=== PATIENT | male | born 1955 | race African-American/Black ===

== ENCOUNTER → 2017-09-05 15:02 | Outpatient (CLI) | payer OTHER, SELFPAY ==
--- NOTE | 2017-09-12 17:04 | PM.PFT.1 ---
Pulmonary Function Test Referral & Results Date Patient Seen: 09/05/17 Requesting provider: Violet Moon Results: The spirometry demonstrates an FVC of 4.35 L which is 94% of predicted. The FEV1 was measured at 2.46 L which is 70% of predicted. The FEV1/FVC ratio was 56 which is 70 for of predicted. Following the administration of bronchodilator there was no significant change. Lung volumes show an SVC of 4.99 L which is 180% of predicted. The diffusing capacity was measured at 23.17 which is 74% of predicted. No hemoglobin value was provided, so no correction for potential anemia could be made, if appropriate. The maximum voluntary ventilation was normal. Interpretation: This study demonstrates mild obstructive lung disease with no evidence of benefit following bronchodilator administration There is also slight reduction in diffusing capacity suggesting some element of disease at the capillary alveolar level. Compared to PFTs performed in August 2013, current spirometry shows a decline in FEV1 from 2.85 L in 2013 to current value of 2.46 L Diffusing capacity is actually somewhat improved.
== END ==
PROVIDERS: Visit Provider Internal Medicine Critical Care Medicine
DX: J44.9 Chronic obstructive pulmonary disease, unspecified (principal)
CPT/HCPCS: 94010; 94060; 94726; 94729

== ENCOUNTER → 2020-08-30 14:52 | Outpatient (CLI) | payer OTHER, SELFPAY ==
[2020-08-30 15:45] LABS: COVID19 -Nasal RAPID Negative (Negative)
== END ==
PROVIDERS: PCP Family Medicine; Referring Provider Internal Medicine; Visit Provider Internal Medicine
DX: Z20.822 Contact with and (suspected) exposure to COVID-19 (principal)
CPT/HCPCS: 87635; C9803

== ENCOUNTER → 2020-08-31 14:50 | Outpatient (CLI) | payer OTHER, SELFPAY ==
--- OUTSIDE RECORDS SUMMARY | 2020-08-21 08:26 | XMS_ITS | Referral Summary ---
:1955 Author Organization [address] [address] Care Team Providers Name Role Phone MD Susy Primary Care Provider Reason for Referral Consultation (Routine) Status Reason Specialty Diagnoses / Referred By Referred To Procedures Contact Contact Authorized Diagnoses Diastolic dysfunction Sharon Cohen MD [facility] Procedures ECHOCARDIOGRAM COMPLETE [address] [place] [phone] Phone: Electronically signed by Sharon Cohen MD atConsultation (Routine) Status Reason Specialty Diagnoses / Referred By Referred To Procedures Contact Contact Authorized Diagnoses Chronic obstructive pulmonary disease, unspecified COPD type ([facility]/HCC) Sharon Cohen MD [facility] Procedures Complete PFT with DLCO [address] [place] [phone] Phone: Electronically signed by Sharon Cohen MD at Reason for Visit Reason Comments COPD Evaluate and Treat (Routine) Status Reason Specialty Diagnoses / Referred By Referred To Procedures Contact Contact Authorized Pulmonary Disease / Diagnoses follow up COPD (patient will get a new referral) Julia Rodriguez Natha ni, Niket, Pulmonology Procedures OFFICE VISIT MD [facility] [address] [facility], [address] [place] [address] Phone: Fax: Encounter Details Date Type Department Care Team Description 07/04/2020 Office Visit Sharon Casas MD Chronic obstructive pulmonary disease, u nspecified COPD type (CMS/HCC) (Primary Dx); Clinics Pulmonology [address] Nicot ine dependence, cigarettes, with unspecified nicotine-induced disorders; [facility] Screening for malignant neoplasm of resp iratory organ; [address] [place], [place] [phone] Allergies No Known Active Allergiesdocumented as of this encounter (statuses as of 08/21/2020) Medications Medication Sig Dispensed Refills Start Date End Date Status propranolol Take 20 mg by 0 Acti ve (INDERAL) 20 mg mouth daily tablet gabapentin 0 02/16/2018 Active (NEURONTIN) 300 mg capsule ibuprofen Take 1 tablet 0 10/27/2018 Activ e (ADVIL,MOTRIN) 600 by mouth mg tablet daily buPROPion Take 75 mg by 0 Active (WELLBUTRIN) 75 mg mouth 2 (two) tablet times a day atorvastatin 0 05/26/2019 Active (LIPITOR) 40 mg tablet cholecalciferol, 0 06/19/2020 Ac tive vitamin D3, 25 mcg (1,000 unit) tablet losartan (COZAAR) 0 06/19/2020 A ctive 25 mg tablet nicotine 0 06/19/2020 Active polacrilex (COMMIT) 2 mg lozenge rizatriptan 0 05/31/2020 Active (MAXALT) 10 mg tablet albuterol HFA Inhale 2 17 g 11 07/04/2020 Activ e (ProAir HFA) 90 puffs every 4 mcg/actuation (four) hours inhalerIndications as needed for : Screening for wheezing malignant neoplasm of respiratory organ, Nicotine dependence, cigarettes, with unspecified nicotine-induced disorders, Chronic obstructive pulmonary disease, unspecified COPD type (CMS/HCC) albuterol HFA Inhale 2 17 g 5 07/09/2019 Disco ntinued (ProAir HFA) 90 puffs every 4 1 (Reorder) mcg/actuation (four) hours inhaler as needed for wheezing tiotropium bromide Inhale 2 3 Inhaler 1 07/09/2019 Discontinued (Spiriva Respimat) puffs by 1 2.5 mcg/actuation mouth once inhaler daily for breathing. umeclidinium-vilan Inhale 1 puff 60 each 5 07/04/2020 Discontinued teroL (Anoro daily 1 (Altern ate Ellipta) 62.5-25 the rapy) mcg/actuation blister with deviceIndications: Screening for malignant neoplasm of respiratory organ, Nicotine dependence, cigarettes, with unspecified nicotine-induced disorders, Chronic obstructive pulmonary disease, unspecified COPD type ([facility]) documented as of this encounter (statuses as of 08/21/2020) Active Problems Problem Noted Date Diastolic dysfunction 07/04/2020 Last Assessment & Plan: Patient has hypertension with reported b lood pressures in the high range. He had evidence of diastolic dysfunction on his prior echo. We will repeat an echocardiogram as he had some mild worsening of his exertional shortness of breath to as sess for any cardiomyopathy or progression. He is in agreement with the plan. We will call him with the results. Chronic obstructive pulmonary disease 07/22/2019 Last Assessment & Plan: Patient has COPD. He continues to smoke . He is a nonexacerbated phenotype. He only gets dyspneic with exercise for which he premedicates with albuterol. He has been on Spiriva. Due to some mild wor sening in exertional dyspnea he like to try a new inhaler regimen. We will prescribe LAMA/LABA and he will call to report back his response. His last set of PFTs were in 2018 so we will repeat this to assess for worsening obstruction and ob tain echocardiogram to rule out other causes of worsening shortness of breath. We will plan to call him with the results of the PFTs and echocardiogram. We did discuss smoking cessation. He should co ntinue to practice healthy lifestyle. We will follow-up in 6 months. Nicotine dependence, cigarettes, with unspecified darcie inés-induced 07/22/2019 disorders Last Assessment & Plan: Continues to smoke 1-2 cigarettes per da y. Has been difficult for him to quit. He did quit for 2 months on Wellbutrin. His continues to smoke. I counseled him for smoking cessation for 3 minutes. Screening for malignant neoplasm of respiratory organ 07/22/2019 Last Assessment & Plan: Does not qualify for LDCT as he has only 19 pack year smoking history. documented as of this encounter (statuses as of 08/21/2020) Immunizations Name Administration Dates Next Due Hep A, Unspecified 03/10/1996 TD Preservative Free (Generic) 09/24/2005 documented as of this encounter Social History Tobacco Use Types Packs/Day Years Used Date Current Some Day Smoker 0.5 37 Quit : 09/14/2018 Smokeless Tobacco: Never Used Tobacco Cessation: Ready to Quit: Yes Comments: 1-2 cigarettes a day Alcohol Use Standard Drinks/Week Comments Yes 0 (1 standard drink = 0.6 oz pure alcoho l) occasional Sex Assigned at Date Recorded Not on file Job Start Date Occupation Industry Not on file Not on file Not on file documented as of this encounter Last Filed Vital Signs Vital Sign Reading Time Taken Comments Blood Pressure 140/88 07/04/2020 2:04 PM PDT Pulse 92 07/04/2020 2:01 PM PDT Temperature 36.7 ??C (98.1 ??F) 07/04/2020 2:01 PM PDT Respiratory Rate - - Oxygen Saturation 97% 07/04/2020 2:01 PM PDT Inhaled Oxygen Concentration - - Weight 83.9 kg (184 lb 14.4 oz) 07/04/2020 2:01 PM PDT Height 175.3 cm (5' 9) 07/04/2020 2:01 PM PDT Body Mass Index 27.3 07/04/2020 2:01 PM PDT documented in this encounter Patient Instructions Patient InstructionsSharon Cohen MD - 07/04/2020 2:00 PM PDT Darin, you mentioned you are having a little more difficulty with your exercises. We will try switching your Spiriva inhaler to an alternative that contains Spiriva and additional medication. I will refill your albuterol as well. I recommend getting lung function test and a repeat ultrasound of your heart to check on your lung and heart function respectively. We will send this to [facility] and call you with the results. Lets plan to follow-up in 6 months. Please let me know if the inhaler is not helping and we can go back to Spiriva. Working on quitting smoking, you are doing a good job. documented in this encounter Progress Notes Sharon Cohen MD - 07/04/2020 2:00 PM PDT Outpatient Pulmonary Clinic Note 07/04/20 Primary Care Physician: Zack Jain MD Subjective Subjective Dear Dr. Zack Jain, I had the pleasure of seeing your patient Darin Kaur who is a pleasant 64 y.o. male with a history of mild obstructive ventilatory defect due to COPD on Spiriva and albuterol as needed and ongoingtobacco use who presents today for one year follow-up. Patient overall has been doing well but has noticed a decline in his exercise ability. He will be short of breath quicker than he thinks he should be. He continues to smoke but only 1-2 cigarettes per day, and was able to stop for 2 months over the past year. He continues to take Wellbutrin and plans to quit soon, but his smokes so it makes it difficult. He takes his Spiriva daily and albuterol only once prior to exercise. His last PFT was in 2018 and last echo in 2013. Denies any exacerbations, fever, chills, cough, wheezing or edema. PROBLEM LIST: Past Medical History: Diagnosis Date ??? COPD (chronic obstructive pulmonary disease) (CMS/HCC) ??? Hyperlipidemia ??? Hypertension History reviewed. No pertinent surgical history. History reviewed. No pertinent family history. Social History Socioeconomic History ??? Marital status: Unknown Spouse name: Not on file ??? Number of children: Not on file ??? Years of education: Not on file ??? Highest education level: Not on file Occupational History ??? Not on file Tobacco Use ??? Smoking status: Current Some Day Smoker Packs/day: 0.50 Years: 37.00 Pack years: 18.50 Last attempt to quit: 09/14/2018 Years since quittin.8 ??? Smokeless tobacco: Never Used ??? Tobacco comment: 1-2 cigarettes a day Substance and Sexual Activity ??? Alcohol use: Yes Comment: occasional ??? Drug use: Never ??? Sexual activity: Defer Other Topics Concern ??? Not on file Social History Narrative ??? Not on file Social Determinants of Health Financial Resource Strain: ??? Difficulty of Paying Living Expenses: Food Insecurity: ??? Worried About Running Out of Food in the Last Year: ??? Ran Out of Food in the Last Year: Transportation Needs: ??? Lack of Transportation (Medical): ??? Lack of Transportation (Non-Medical): Physical Activity: ??? Days of Exercise per Week: ??? Minutes of Exercise per Session: Stress: ??? Feeling of Stress : Social Connections: ??? Frequency of Communication with Friends and Family: ??? Frequency of Social Gatherings with Friends and Family: ??? Attends [employer] Services: ??? Active Member of Clubs or Organizations: ??? Attends Club or Organization Meetings: ??? Marital Status: No Known Allergies Current Medication List Sig albuterol HFA (ProAir HFA) 90 mcg/actuation inhaler Inhale 2 puffs every 4 (four) hours as needed for wheezing atorvastatin (LIPITOR) 40 mg tablet buPROPion (WELLBUTRIN) 75 mg tablet Take 75 mg by mouth 2 (two) times a day cholecalciferol, vitamin D3, 25 mcg (1,000 unit) tablet ibuprofen (ADVIL,MOTRIN) 600 mg tablet Take 1 tablet by mouth daily losartan (COZAAR) 25 mg tablet nicotine polacrilex (COMMIT) 2 mg lozenge propranolol (INDERAL) 20 mg tablet Take 20 mg by mouth daily rizatriptan (MAXALT) 10 mg tablet albuterol HFA (ProAir HFA) 90 mcg/actuation inhaler (Discontinued) Inhale 2 puffs every 4 (four) hours as needed for wheezing tiotropium bromide (Spiriva Respimat) 2.5 mcg/actuation inhaler (Discontinued) Inhale 2 puffs by mouth once daily for breathing. gabapentin (NEURONTIN) 300 mg capsule umeclidinium-vilanteroL (Anoro Ellipta) 62.5-25 mcg/actuation blister with device Inhale 1 puff daily Review of Systems Objective Objective BP (!) 140/88 (BP Location: Left arm, Patient Position: Sitting) Pulse 92 Temp 36.7 ??C (98.1 ??F) (Oral) Ht 1.753 m Wt 83.9 kg SpO2 97% BMI 27.30 kg/m?? Physical Exam: General appearance: No apparent distress, well-nourished, pleasant, cooperative HEET: Normocephalic atraumatic Respiratory: Clear to auscultation bilaterally. No wheezes, rhonchi, or rales. Symmetrical chest wall expansion. No dullness to percussion or egophony. Normal work of breathing. Neuro: Alert, awake, oriented, no focal deficits. Psych: appropriate mood and affect LABS 03/23/15 CO2 was 21 Pulmonary Functions Testing Results: I personally reviewed PFTs from 09/05/2017 showing mild obstructive ventilatory defect, no significantbronchodilator response, hyperinflation, air trapping, and mildly depressed gas exchange corrected for hemoglobin. Flow volume loop is coved. IMAGING No imaging to review Assessment and Plan Assessment Assessment/Plan Comments: 1. Chronic obstructive pulmonary disease, unspecified COPD type (CMS/HCC) (Primary) Assessment & Plan: Patient has COPD. He continues to smoke. He is a nonexacerbated phenotype. He only gets dyspneic with exercise for which he premedicates with albuterol. He has been on Spiriva. Due to some mild worsening in exertional dyspnea he like to try a new inhaler regimen. We will prescribe LAMA/LABA and he will call to report back his response. His last set of PFTs were in 2018 so we will repeat this to assess for worsening obstruction and obtain echocardiogram to rule out other causes of worsening shortness of breath. We will plan to call him with the results of the PFTs and echocardiogram. We diddiscuss smoking cessation. He should continue to practice healthy lifestyle. We will follow-up in 6 months. Orders: - Anoro Ellipta; Inhale 1 puff daily Dispense: 60 each; Refill: 5 - albuterol sulfate; Inhale 2 puffs every 4 (four) hours as needed for wheezing Dispense: 17 g;Refill: 11 - Complete PFT with DLCO; Future 2. Nicotine dependence, cigarettes, with unspecified nicotine-induced disorders Assessment & Plan: Continues to smoke 1-2 cigarettes per day. Has been difficult for him to quit. He did quit for 2 months on Wellbutrin. His continues to smoke. I counseled him for smoking cessation for 3 minutes. Orders: - Anoro Ellipta; Inhale 1 puff daily Dispense: 60 each; Refill: 5 - albuterol sulfate; Inhale 2 puffs every 4 (four) hours as needed for wheezing Dispense: 17 g;Refill: 11 3. Screening for malignant neoplasm of respiratory organ Assessment & Plan: Does not qualify for LDCT as he has only 19 pack year smoking history. Orders: - Anoro Ellipta; Inhale 1 puff daily Dispense: 60 each; Refill: 5 - albuterol sulfate; Inhale 2 puffs every 4 (four) hours as needed for wheezing Dispense: 17 g;Refill: 11 4. Diastolic dysfunction Assessment & Plan: Patient has hypertension with reported blood pressures in the high range. He had evidence of diastolic dysfunction on his prior echo. We will repeat an echocardiogram as he had some mild worsening ofhis exertional shortness of breath to assess for any cardiomyopathy or progression. He is in agreement with the plan. We will call him with the results. Orders: - ECHOCARDIOGRAM COMPLETE; Future; Expected date: 07/04/2020 Follow-up: 6 months Participated in evaluation and management of the patient for 30 minutes diseases COPD, diastolic dysfunction, nicotine dependence, lung cancer screening including personal review and interpretation of PFTs, ordering of echocardiogram and PFTs, counseling smoking cessation, discussion of lung cancer screening, documentation, and counseling. I was physically present during the anthony portions of the E/M service performed by the resident. I discussed case with the resident and have reviewed and edited the documentation where appropriate. Sharon Cohen M.D. Pulmonary & Asthma, Critical Care [facility] Please note that this dictation was completed with computer voice recognition software. Quite often unanticipated grammatical, syntax, homophones, and other interpretive errors are inadvertently transcribed by the computer software. Please disregard these errors. Please excuse any errors that have escaped final proofreading. Electronically signed by Sharon Cohen MD 07/04/2020 5:00 PM documented in this encounter Miscellaneous Notes Assessment & Plan Note - Sharon Cohen MD - 07/04/2020 4:59 PM PDT Associated Problem(s): Diastolic dysfunction Patient has hypertension with reported blood pressures in the high range. He had evidence of diastolic dysfunction on his prior echo. We will repeat an echocardiogram as he had some mild worsening ofhis exertional shortness of breath to assess for any cardiomyopathy or progression. He is in agreement with the plan. We will call him with the results. ssessment & Plan Note - Rogerio Cisneros, - 07/04/2020 3:00 PM PDTAssociated Problem(s): Screening for malignant neoplasm of respiratory organ Does not qualify for LDCT as he has only 19 pack year smoking history. ssessment & Plan Note - Rogerio Cisneros, - 07/04/2020 2:58 PM PDTAssociated Problem(s): Chronic obstructive pulmonary disease (CMS/[facility]) Patient has COPD. He continues to smoke. He is a nonexacerbated phenotype. He only gets dyspneic with exercise for which he premedicates with albuterol. He has been on Spiriva. Due to some mild worsening in exertional dyspnea he like to try a new inhaler regimen. We will prescribe LAMA/LABA and he will call to report back his response. His last set of PFTs were in 2018 so we will repeat this to assess for worsening obstruction and obtain echocardiogram to rule out other causes of worsening shortness of breath. We will plan to call him with the results of the PFTs and echocardiogram. We diddiscuss smoking cessation. He should continue to practice healthy lifestyle. We will follow-up in 6 months. Assessment & Plan Note - Rogerio Cisneros, - 07/04/2020 2:58 PM PDT Associated Problem(s): Nicotine dependence, cigarettes, with unspecified nicotine-induced disorders Continues to smoke 1-2 cigarettes per day. Has been difficult for him to quit. He did quit for 2 months on Wellbutrin. His continues to smoke. I counseled him for smoking cessation for 3 minutes. documented in this encounter Plan of Treatment Scheduled Orders Name Type Priority Associated Diagnoses Order S chedule Complete PFT with DLCO PFT Routine Chronic obstructiv e 1 Occurrences starting pulmonary disease, until unspecified COPD type 2021 (CMS/HCC) ECHOCARDIOGRAM COMPLETE Imaging Routine Diastolic dysfunc tion Expected: 07/04/2020, Expires: 2022 documented as of this encounter Visit Diagnoses Diagnosis Chronic obstructive pulmonary disease, u nspecified COPD type (CMS/HCC) - Primary Nicotine dependence, cigarettes, with un specified nicotine-induced disorders Screening for malignant neoplasm of resp iratory organ Special screening for malignant neoplasm of the respiratory organs Diastolic dysfunction Unspecified heart disease documented in this encounter (Work) [id number] documented as of this encounter Advance Directives Documents on File Type Date Recorded 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
--- NOTE | 2020-09-06 09:40 | PM.PFT.1 ---
Pulmonary Function Test Referral & Results Date Patient Seen: 08/31/20 Requesting provider: Sharon Cohen Results: The spirometry demonstrates an FVC of 4.36 L which is 96% of predicted. The FEV1 was measured at 2.15 L which is 63% of predicted. The FEV1/FVC ratio was 49 which is 65% of predicted. Following the administration of bronchodilator there was no appreciable change. Lung volumes show an SVC of 4.60 L which is 100% of predicted. The diffusing capacity was measured at 18.52 which is 59% of predicted. No hemoglobin value was provided, so no correction for potential anemia could be made, if appropriate. The maximum voluntary ventilation was reduced Interpretation: This study demonstrates moderate obstructive lung disease without evidence of benefit following bronchodilator There is also atqe-pz-jxehbndr reduction diffusing capacity suggesting disease at the capillary alveolar level Compared to PFTs performed in August 2017, current study is essentially unchanged although there might be a more significant decline in diffusing capacity
== END ==
PROVIDERS: PCP Family Medicine; Referring Provider Internal Medicine; Visit Provider Internal Medicine
DX: J44.9 Chronic obstructive pulmonary disease, unspecified (principal); F17.210 Nicotine dependence, cigarettes, uncomplicated
CPT/HCPCS: 94060; 94726; 94729

== ENCOUNTER → 2021-08-26 14:35 | Outpatient (CLI) | payer OTHER, SELFPAY ==
--- NOTE | 2021-08-26 14:37 | DI.MRI.S_ITS ---
PROCEDURE: MR PELIS WO/W CON INDICATIONS: Elevated PSA, rising PSA, TECHNIQUE: Coronal HASTE, axial T1 FSE with fat saturation, 3-plane nonbreath-hold T2 FSE. After the administration of contrast, dynamic axial, delayed axial and coronal VIBE or 2-D FLASH with fat saturation through the pelvis. Optional diffusion weighted imaging and ADC may be performed. COMPARISON: None. FINDINGS: Image quality: Diffusion weighted and dynamic contrast enhanced images are diagnostic. Prostate: Gland size is 4.0 x 3.6 x 4.9 cm; ellipsoid gland volume is 37 mL. Lesion #1: Size: 1.3 x 1.2 x 1.0 cm. Location: Right posterior medial and posterolateral peripheral zone, gland apex (for example axial ADC series 24, image 13). T2 signal: Circumscribed hypointense. DWI/ADC signal: Hypointense on ADC images with corresponding DWI hyperintensity. DCE: Positive. KATHE: Likely present posteriorly in the expected region of the neurovascular bundle (for example sagittal T2 series 6, image 9). Seminal vesicle invasion: Absent. PI-RADS: T2 signal - 4; ADC - 4; DCE - positive; Overall score: PI-RADS 4. Genitourinary system: Bladder wall thickness is normal. Distal ureters are non distended. Bowel and peritoneum: No pathologic free pelvic fluid. Inferior colon and small bowel loops are normal in caliber. Nodes and vessels: No pelvic or inguinal adenopathy by size criteria. Iliac vessels are normal in caliber. Soft tissues: No inguinal hernias. Bones: No definite suspicious lesion visualized. IMPRESSION: 1. A 1.3 cm lesion at the right peripheral zone, gland apex, is consistent with PI-RADS category 4. There is likely extracapsular extension posteriorly. 2. No suspicious lymph nodes visualized in the imaged pelvis. Dictated by: Michael Wells M.D. on 08/27/2021 at 10:45 Approved by: Michael Wells M.D. on 08/27/2021 at 11:26
== END ==
PROVIDERS: PCP Family Medicine; Referring Provider Urology; Visit Provider Urology
DX: R97.20 Elevated prostate specific antigen [PSA] (principal); N42.9 Disorder of prostate, unspecified; D40.0 Neoplasm of uncertain behavior of prostate
CPT/HCPCS: 72197; A9579

== ENCOUNTER → 2021-11-15 12:54 | Outpatient (CLI) | payer OTHER, SELFPAY ==
[2021-11-15 14:29] LABS: BUN Creatinine Ratio 15.6 (6-22); Blood Urea Nitrogen 17 mg/dL (9-20); Calcium 9.7 mg/dL (8.4-10.2); Carbon Dioxide 30 mmol/L (22-32); Chloride 104 mmol/L (98-107); Estimated Glomerular Filt Rate > 60 mL/min (>60); Glucose 119 mg/dL (80-110); HEMOLYSIS < 15 (0-50); Potassium 4.5 mmol/L (3.4-5.1); Sodium 143 mmol/L (137-145)
== END ==
PROVIDERS: PCP Family Medicine; Referring Provider Urology; Visit Provider Urology
DX: Z01.812 Encounter for preprocedural laboratory examination (principal)
CPT/HCPCS: 36415; 80048

== ENCOUNTER → 2021-11-15 14:40 | Outpatient (CLI) | payer OTHER, SELFPAY ==
--- NOTE | 2021-11-15 14:45 | DI.CT.S_ITS ---
PROCEDURE: CT ABDOMEN PELVIS W CON INDICATIONS: New diagnosis prostate cancer TECHNIQUE: After the administration of intravenous contrast, axial sections acquired from the lung bases to the pubic symphysis. Coronal and sagittal reformats were performed. For radiation dose reduction, the following was used: automated exposure control, adjustment of mA and/or kV according to patient size. COMPARISON: None. FINDINGS: Image quality: Excellent. Lung bases: There is a small calcified granuloma in the patient's right lung base. There is area of round atelectasis the patient's right lung base. Heart: No significant findings. ABDOMEN: Liver: Unremarkable. Gallbladder: Unremarkable. Biliary ducts: Unremarkable. Pancreas: Unremarkable. Spleen: Unremarkable. Adrenal Glands: Unremarkable. Kidneys and Ureters: Unremarkable. Stomach and Bowel: Stomach, small bowel loops, and colon are unremarkable. Peritoneum: No abnormal intraperitoneal fluid. No free air. Ventral Wall: No hernias. Abdominal Nodes: No retroperitoneal or mesenteric adenopathy by size criteria. Vessels: Aorta and inferior vena cava are normal in size. There are some atherosclerotic calcifications present. PELVIS: Pelvic Organs: Unremarkable. Bladder: Unremarkable. Pelvic Nodes: No enlarged lymph nodes. Miscellaneous: No hernias are seen. Bones: No significant bony lytic or sclerotic lesions are seen. IMPRESSION: 1. No evidence for metastatic disease identified within the abdomen or pelvis. 2. Calcified granuloma right lung base. 3. Area of round atelectasis right lung base. 4. Atherosclerotic change. Dictated by: Gonzalo Gooden M.D. on 11/15/2021 at 16:10 Approved by: Gonzalo Gooden M.D. on 11/15/2021 at 16:31
== END ==
PROVIDERS: PCP Family Medicine; Referring Provider Urology; Visit Provider Urology
DX: C61 Malignant neoplasm of prostate (principal); Z01.812 Encounter for preprocedural laboratory examination; J98.11 Atelectasis
CPT/HCPCS: 36415; 74177; 80048; Q9967

== ENCOUNTER → 2021-11-20 12:45 | Outpatient (CLI) | payer OTHER, SELFPAY ==
--- NOTE | 2021-11-20 12:48 | DI.NM.S_ITS ---
PROCEDURE: NM BONE SCAN WHOLE BODY RADIOPHARMACEUTICAL: 21.7 mCi Tc-99m MDP IV. INDICATIONS: New diagnosis prostate cancer TECHNIQUE: Delayed whole-body scintigrams were obtained approximately 3-4 hours after intravenous injection of radiotracer. Anterior and posterior views were acquired from vertex to feet. Additional left and right oblique views of the pelvis were obtained. COMPARISON: [facility], CT, CT ABDOMEN PELVIS W CON, 11/15/2021, 15:04. FINDINGS: Physiologic uptake is noted within the kidneys and bladder. Increased uptake is noted within the knees as well as small bones of the feet in shoulder girdles bilaterally. Mild scattered areas of uptake are noted within the spine. IMPRESSION: Areas of uptake within the knees feet spine and shoulders suggestive of degenerative change. No definitive areas of metastatic disease are identified. Dictated by: Elaine Quintero M.D. on 11/20/2021 at 23:04 Approved by: Elaine Quintero M.D. on 11/20/2021 at 23:05
== END ==
PROVIDERS: PCP Family Medicine; Referring Provider Urology; Visit Provider Urology
DX: C61 Malignant neoplasm of prostate (principal)
CPT/HCPCS: 78306; A9503

== ENCOUNTER → 2022-03-15 14:40 | Outpatient (CLI) | payer OTHER, SELFPAY | PROVIDERS: PCP Family Medicine; Referring Provider Urology; Visit Provider Urology | DX: C61 Malignant neoplasm of prostate (principal); R97.20 Elevated prostate specific antigen [PSA]; R39.9 Unspecified symptoms and signs involving the genitourinary system; N42.9 Disorder of prostate, unspecified; Z79.818 Long term (current) use of other agents affecting estrogen receptors and estrogen levels; Z72.0 Tobacco use | CPT/HCPCS: 36415; 84153; 96402; 99214; J9217 ==

== ENCOUNTER → 2022-12-12 14:53 | Outpatient (CLI) | payer MEDICARE, OTHER, SELFPAY ==
[2022-12-17 16:18] LABS: Prostate Specific Antigen < 0.064 ng/mL (0.10-4.00)
== END ==
PROVIDERS: PCP Family Medicine; Referring Provider Urology; Visit Provider Urology
DX: C61 Malignant neoplasm of prostate (principal)
CPT/HCPCS: 36415; 84153

== ENCOUNTER → 2023-02-03 14:15 | Outpatient (CLI) | payer MEDICARE, OTHER, SELFPAY ==
--- NOTE | 2023-02-03 14:17 | DI.RAD.S_ITS ---
Bone Density Report Name: BRENDEN VELASQUEZ Age: 67 Sex: Male Ethnicity: Black Date of : 1955 Indication: history of glucocorticoids; Referring Provider: KATHIE SUTTON Study: Bone densitometry was performed. Exam Date: February 03, 2023 Accession number: [id number] Bone Density: Region BMD T-score Z-score Classification AP Spine(L1, L2, L3) 0.859 -1.4 -2.1 Osteopenia Femoral Neck (Left) 0.825 -0.2 -0.3 Normal Total Hip (Left) 1.019 0.6 0.0 Normal Femoral Neck (Right) 0.800 -0.4 -0.4 Normal Total Hip (Right) 1.005 0.5 -0.1 Normal Total Hip Mean 1.012 0.6 -0.1 Normal World Health Organization criteria for BMD impression classify patients as: Normal (T-score at or above -1.0), Osteopenia (T-score between -1.0 and -2.5), or Osteoporosis (T-score at or below -2.5). 10-year Fracture Risk(1): Major Osteoporotic Fracture 3.1% Hip Fracture 0.3% Reported Risk Factors: [place] (Black), Neck BMD=0.800, BMI=29.8, glucocorticoids (1) FRAX(R) Version 3.08. Fracture probability calculated for an untreated patient. Fracture probability may be lower if the patient has received treatment. Previous Exams: -- Region Exam Age BMD T-score BMD Change BMD Change Date g/cm2 vs Baseline vs Previous -- AP Spine (L1-L3) 02/03/2023 67 0.859 -1.4 -0.138 (-13.8%)# -0.138 (-13.8%)# 02/28/2015 59 0.997 -0.2 Total Hip(Left) 02/03/2023 67 1.019 0.6 -0.063 (-5.8%)# -0.063 (-5.8%)# 02/28/2015 59 1.082 1.1 Total Hip(Right) 02/03/2023 67 1.005 0.5 -0.130 (-11.4%)# -0.130 (-11.4%)# 02/28/2015 59 1.135 1.6 -- *Denotes significance at 95% confidence level, LSC for AP Spine = 0.022 g/cm2, LSC for Total Hip = 0.027 g/cm2 # Denotes dissimilar scan types or analysis methods Impression: The patient has low bone mass, based on the Total Spine T-score. The patient has an estimated ten-year risk of hip fracture of 0.3% and an estimated ten-year risk of major fracture of 3.1%, based on the WHO FRAX algorithm. The patient has risk factors, including: history of glucocorticoid therapy. No significant bone loss was observed. Discussion: BONE DENSITY IS LOW AT ONE OR MORE SKELETAL SITES. BONE DENSITY IS ABNORMALLY LOW FOR AGE, SEX, AND RACE. This patient's lowest T-score is low at one or more skeletal sites. It meets the World Health Organization's (WHO) criteria for low bone mass (T-score between -1.0 and -2.5). This patient's lowest Z-score is -2.0 or more below average for age, sex, and race at one or more sites. This may be due to low peak bone mass or to excessive bone loss. There may be some underlying disease or condition contributing to reduced bone mass. Further evaluation should be considered. The patient's 10-year risk of fracture as calculated by FRAX is less than the threshold where pharmacological therapy is recommended by the National Osteoporosis Foundation (NOF). However, all treatment decisions require clinical judgment and consideration of individual patient factors, including patient preferences, comorbidities, previous drug use, risk factors not captured in the FRAX model (e.g., frailty, falls, vitamin D deficiency, increased bone turnover, interval significant decline in bone density) and possible under or overestimation of fracture risk by FRAX. The patient should follow a healthful lifestyle (good nutrition with adequate calcium and vitamin D, and appropriate weight-bearing exercise). Follow-Up: Consider repeating this study in 2 to 3 years to reassess this patient's status, or sooner if there is some new clinical indication. Reported by: ROBIN VELAZQUEZ M.D. on 02/03/2023 2:54:00 PM.
== END ==
PROVIDERS: Referring Provider Urology; Visit Provider Urology
DX: Z79.818 Long term (current) use of other agents affecting estrogen receptors and estrogen levels (principal); C61 Malignant neoplasm of prostate; M85.88 Other specified disorders of bone density and structure, other site
CPT/HCPCS: 77080

== ENCOUNTER → 2023-12-22 13:44 | Outpatient (CLI) | payer OTHER, SELFPAY ==
--- NOTE | 2023-12-22 | DI.US.S_ITS ---
PROCEDURE: US ABD AORTA ANEURYSM SCREEN INDICATIONS: PREVIOUS SMOKING HISTORY TECHNIQUE: Real time scanning was performed of the aorta and iliac arteries, with image documentation. COMPARISON: None. FINDINGS: Aorta: Proximal aortic diameter measures 2.6 cm. Mid-aorta measures 2.8 x 1.8 cm. Distal aortic diameter is 1.8 x 1.7 cm. Iliac arteries: Right common iliac artery measures 1.2 cm. Left common iliac artery measures 1.2 cm. IMPRESSION: Negative for aneurysm. Dictated by: Aaron Bennett M.D. on 12/22/2023 at 14:28 Approved by: Aaron Bennett M.D. on 12/22/2023 at 14:28
== END ==
PROVIDERS: PCP Family Medicine; Referring Provider Nurse Practitioner Family; Visit Provider Nurse Practitioner Family
DX: I71.40 Abdominal aortic aneurysm, without rupture, unspecified (principal)
CPT/HCPCS: 76706